=== PATIENT | male | born 1995 | race Caucasian/White ===

== ENCOUNTER 2022-12-06 12:47 | Emergency (ER) | payer OTHER, SELFPAY ==
[2022-12-06 12:56] VITALS: BP 142/81; PULSE 99; RESP 20; TEMP 37.3; O2SAT 100
--- NOTE | 2022-12-06 13:06 | ED.SKABFB ---
HPI - Skin/Abscess/Foreign Bdy General Chief complaint: Skin/Abscess/Foreign Body Stated complaint: Insect Bite/Left Arm Source: patient and RN notes reviewed History of Present Illness HPI narrative: 27 yo M presents to urgent care stating he woke up this morning at 3 am b/c he was bit by a spider. Pt states his arm is hurting now. Reports nausea. Denies any fevers, chills, vomiting, chest pain, SOB, numbness, or tingling. Related Data Home Medications Medication Instructions Recorded Confirmed naproxen 375 mg tablet mg 12/06/22 quetiapine 25 mg tablet mg 12/06/22 valsartan 160 mg tablet mg 12/06/22 Allergies Allergy/AdvReac Type Severity Reaction Status Date / Time cefaclor [From Ceclor] Allergy Unknown Verified 12/06/22 13:00 escitalopram [From Lexapro] Allergy Unknown Verified 12/06/22 13:00 Penicillins Allergy Unknown Verified 12/06/22 13:00 Review of Systems Review of Systems: CONSTITUTIONAL: Denies fever, chills, or sweats. EYES: Denies visual changes, redness, or discharge. ENT: Denies otalgia and sore throat CARDIOVASCULAR: Denies chest pain, palpitations, or edema. RESPIRATORY: Denies cough or dyspnea. GASTROINTESTINAL: Denies abdominal pain, nausea, vomiting, or diarrhea. GENITOURINARY: Denies dysuria or hematuria. SKIN: Insect bite left upper arm MUSCULOSKELETAL: Denies back pain, joint pain, or myalgia. NEUROLOGIC: Denies headache, numbness, or weakness. Pertinent positives per HPI. PMFSH Comments At the time of my signature, I reviewed and agree with the nursing past medical, surgical, social, and family history. There is no relevant family history pertinent to the patient complaint. Exam Narrative: GENERAL: This is a well-nourished, well-developed patient, in no apparent distress. HEAD: normocephalic, atraumatic. EYES: Sclera clear/white. Vision is grossly intact. EARS: External ears normal, auditory canals clear and without drainage. Hearing grossly intact. NOSE: External nose normal with no obvious nasal discharge, nares without redness, no rhinorrhea. THROAT: Mucous membranes moist, posterior pharynx clear. NECK: Neck supple, non-tender without lymphadenopathy, masses or thyromegaly. CARDIOVASCULAR: Regular rate and rhythm without murmurs, gallops, or rubs. RESPIRATORY: Clear to auscultation. Breath sounds equal bilaterally. No wheezes, rales, or rhonchi. SKIN: insect bite to left upper arm with 2.5 cm of erythema surrounding it. no fluctuance or drainage. no streaking. NEURO: awake, alert, and oriented to person, place and time. There were no obvious focal neurologic abnormalities. EXTREMITIES: No clubbing, cyanosis, or edema. No joint tenderness, effusion, or edema noted. BACK: Nontender without deformity or crepitus. No flank tenderness. Course Course Level of Care: Express Care Visit Vital Signs Vital signs: Vital Signs Temperature 99.1 F 12/06/22 12:56 Pulse Rate 99 12/06/22 12:56 Respiratory Rate 20 12/06/22 12:56 Blood Pressure 142/81 H 12/06/22 12:56 Pulse Oximetry 100 12/06/22 12:56 Oxygen Delivery Room Air 12/06/22 12:56 Temperature 99.1 F 12/06/22 12:56 Pulse Rate 99 12/06/22 12:56 Respiratory Rate 20 12/06/22 12:56 Blood Pressure 142/81 H 12/06/22 12:56 Pulse Oximetry 100 12/06/22 12:56 Oxygen Delivery Room Air 12/06/22 12:56 reviewed. MDM - Skin/Abscess/Foreign Bdy MDM Narrative Medical decision making narrative: Clean with soap and water only; Avoid using alcohol and peroxide. Elevate the affected area if possible Alternate Tylenol/ibuprofen for as needed for pain Acetaminophen(Tylenol) 650-1000mg every 4-6hours with max of 4000mg/day. Nonsteroidal anti-inflammatory agent (NSAIDs-ibuprofen): 400mg every 4-6hours with max 2400mg/day Use antibiotic ointment as directed Please schedule a follow up visit with your personal physician for further evaluation and treatment within 3-5days OR if your symptoms per
== END 2022-12-06 13:12 | disposition home or self-care (01) ==
PROVIDERS: Emergency Provider Nurse Practitioner Family
DX: S40.862A Insect bite (nonvenomous) of left upper arm, initial encounter (principal); W57.XXXA Bitten or stung by nonvenomous insect and other nonvenomous arthropods, initial encounter; I10 Essential (primary) hypertension
CPT/HCPCS: 99213; G0463